=== PATIENT | female | born 1985 | race Caucasian/White ===

== ENCOUNTER 2017-04-18 10:04 | Emergency (ER) | payer MEDICAID ==
--- NOTE | 2017-04-18 10:23 | ED Physician Chart ---
Chief Complaint/HPI - Patient Information Date Seen:: 04/18/17 Time Seen:: 10:22 Chief Complaint:: HYPERTENSION History of Present Illness:: This 31-year-old female has a history of congestive failure and hypertension. She was hospitalized twice in December of this year for congestive failure which presented as shortness of breath. The patient denies any chest pain or respiratory distress at this point in time. She was arrested by police this a.m. and brought here for medical clearance. She takes lisinopril for her hypertension twice a day. She has skipped this morning's medication dose. She states that her normal dose of lisinopril was 40 mg twice a day. Patient has mild swelling in her hands compared to what she usually has. Allergies:: Allergies Allergy/AdvReac Type Severity Reaction Status Date / Time No Known Allergies Allergy Verified 04/18/17 10:22 Vitals:: Vital Signs - 8 hr 04/18/17 10:17 Temp 98.2 F HR 103 RR 18 BP 160/110 O2 Sat % 97 Review of Systems - Review of Systems General/Constitutional: No fever, No chills, No weakness, No diaphoresis, Edema (mild edema in the hands as noted in the HPI.) Skin: No skin lesions, No rash, Bruising (the patient has ecchymotic discoloration below both eyes. She walked into a door 3 days ago and the ecchymosis appeared subsequent to that.) Head: Headache (the patient has a headache that she states is a 4/10 in severity. She has this same headache on a daily basis.), No light-headedness Eyes: No loss of vision, No diplopia ENT: No earache, No sore throat Neck: No neck pain, No swelling, No stiffness, No mass noted Cardio Vascular: No chest pain, No palpitations, orthopnea (the orthopnea is intermittent and not a significant issue for the patient.) Pulmonary: No SOB, Cough, No sputum, Other (patient denies any hemoptysis.) GI: No nausea, No vomiting, No diarrhea, No pain G/U: No dysuria, No hematuria Musculoskeletal: Bone or joint pain, Back pain, Other (patient has mild back pain and on physical examination mild bilateral CVA tenderness.) Psychiatric: Prior psych history (the patient has chronic left knee pain which is at its baseline today.), No depression, Anxiety, No suicidal ideation Hematopoietic: Bruising, No lymphadenopathy Allergic/Immuno: No urticaria, No angioedema Neurological: No syncope, No focal symptoms, No weakness, No paresthesia, No confusion, No vertigo Past Medical History - Past Medical History Past Medical History: HTN, CHF, Other (the patient has preeclampsia with her recent .) Social History: Smoker (one half pack of cigarettes per day.), No Alcohol, No Drug Use Family Medical History - Family Member Mother Ethnicity: Non- Living Status: Still Living Hx Family Hypertension: Yes Physical Exam - Physical Examination General/Constitutional: Awake, Well-developed, well-nourished, Alert, No distress, Non-toxic appearing, Ambulatory Head: Atraumatic Other Head comments:: Patient has ecchymotic discoloration consistent with minor head injury 3 days ago from walking into a door. Eyes: Lids, conjuctiva normal, PERRL, EOMI Other Eyes comments:: No nystagmus. No evidence of hyphema or subconjunctival hemorrhage. Skin: No rash, No skin lesions, Well hydrated, No lymphadenopathy ENMT: Lips, teeth, gums nl, Oropharynx nl Neck: Full ROM w/o pain, No JVD, No bruit, No mass, No stridor Respiratory: Nl effort/Exclusion, Clear to Auscultation, No Wheeze/Rhonchi/Rales Cardio Vascular: RRR, No murmur, gallop, rubs, NL S1 S2 Other Cardio Vascular comments:: Good pulses in all 4 extremities. GI: No tenderness/rebounding/guarding, No organomegaly, No hernia, Normal BS's, Nondistended, No mass/bruits, No McBurney tenderness Other GI comments:: Rectal examination deferred at my discretion. Other comments:: Patient had mild left-sided CVA tenderness to percussion. Extremities: No tenderness or effusion, Full ROM, normal strength in all extremities Other Extremities comments:: No pretibial or ankle edema. The patient states that she has edema of her fingers. I've a hard time appreciating that. Neuro/Psych: Alert/oriented, Normal sensory exam, Normal motor strength, Judgement/insight normal, Mood normal, Normal gait, No focal deficits Other Neuro/Psych comments:: DTRs were not hyperreflexic and the patient had no clonus. Misc: Normal back, No paraspinal tenderness Labs/Radiology/EKG Results - Lab Results Results: Single view chest x-ray was canceled when the test came back positive. The EKG shows a rhythm of bigeminy. There is J-point elevation in leads V1 and V2. The QT interval is 444 and borderline prolonged. No T wave abnormality. Impression: Abnormal EKG. Assessment - Assessment General Assessment: CASE SUMMARY: This 31-year-old female was arrested on warrants and brought to the emergency department for medical clearance. She's had 2 admissions this year for congestive heart failure shortly after delivery of her baby in December. She has been switched from beta blockers to lisinopril recently and takes 40 mg twice a day. She has skipped her early a.m. dose this morning and was administered 40 mg in the emergency department. She denied any chest pain or respiratory distress at the present time. She does have a cough which is nonproductive. She has intermittent orthopnea. On physical examination her lungs were clear to auscultation and the heart rate seemed regular. She has no JVD or peripheral edema that is significant. Lungs are clear to auscultation. No murmurs or gallops were present. Her EKG was abnormal with a bigeminy rhythm. Her test was positive and a chest x-ray was canceled. The patient was advised to follow-up with early this coming week for reevaluation of her blood pressure and CHF. She was further advised to return to the emergency department for any onset of chest pain, respiratory distress or increased swelling. She was not deemed to be clear for routine booking. It was my understanding that the patient will be cited out at the police department and released from custody. MDM DDX FOR HYPERTENSION: NOT PHEOCHROMO-CYTOMA BASED ON H STORY AND EXAM. NOT CO-ARCTATION OF THE AORTA BASED OF PHYSICAL EXAM. NOT ECLAMPSIA BASED ON PATIENT'S HISTORY AND EXAM. ED Septic Shock - . Is Septic Shock (SBP<90, OR Lactate>4 mmol\L) present?: No - <6hrs of presentation: Vital Signs: Vital Signs - 8 hr 04/18/17 10:17 Temp 98.2 F HR 103 RR 18 BP 160/110 O2 Sat % 97 Reassessment (Disposition) - Reassessment Reassessment Condition:: Improved - Diagnosis Diagnosis:: 1) HYPERTENSION 2) HISTORY OF CHF 3) BIGEMINY 4) Follow-up with Dr. matthews early this coming week for reevaluation of blood pressure and recommendations for continuation or termination of . NOT MEDICALLY CLEAR for BOOKING. Return to the emergency department for onset of any chest pain, shortness of breath, or significant increase in edema. ED Discharge Plan - Patient Disposition Admit/Discharge/Transfer: PT DISCHARGED HOME Condition at Disposition: Stable Instructions: Care, Heart Failure, [id number], Women and Heart Disease, Hypertension Additional Instructions: Follow up with Dr Yen within next 1-2 days. Come back to ED if shortness of breath or chest pain occurs Accepting Physician: Farshad Mckeon [Other] - 1-3 Days
== END 2017-04-18 11:10 | disposition home or self-care (01) ==
LOC: ER 10:04
DX: O16.1 Unspecified maternal hypertension, first trimester (principal); I11.0 Hypertensive heart disease with heart failure; I50.9 Heart failure, unspecified; R00.8 Other abnormalities of heart beat; F17.210 Nicotine dependence, cigarettes, uncomplicated; Z3A.01 Less than 8 weeks gestation of pregnancy
CPT/HCPCS: 81025-TC; 93005